=== PATIENT | male | born 1945 | race Caucasian/White ===

== ENCOUNTER 2017-03-31 16:48 | Emergency (ER) | payer MEDICARE, BC ==
[2017-03-31] MEDS ORDERED: Sodium Chloride 0.9% 10 ML Syringe FLUSH PRN (19:47)
--- NOTE | 2017-03-31 19:49 | EDM.PDOC ---
ED HPI GENERAL MEDICAL PROBLEM - General Chief Complaint: Gastrointestinal Problem Stated Complaint: ILLNESS POISONING Time Seen by Provider: 03/31/17 19:40 Source of Information: Reports: Patient History Limitations: Reports: No Limitations - History of Present Illness INITIAL COMMENTS - FREE TEXT/NARRATIVE: Rafa presents today with complaints of abdominal pain for 48 hours. He reports he developed generalized abdominal pain, nausea and vomiting after eating a blueberry cake two days ago. Severity: Moderate Improves with: Reports: None Worsens with: Reports: Movement Associated Symptoms: Reports: Loss of Appetite, Nausea/Vomiting. Denies: Fever/ Chills, Headaches, Rash, Weakness Treatments MEAL MILLER: Reports: Other (see below) (none) Right Upper Abdomen Pain Score (Numeric/FACES): 8 - Related Data Allergies Allergy/AdvReac Type Severity Reaction Status Date / Time levofloxacin [From Levaquin] Allergy Cannot Verified 03/31/17 19:32 Remember metronidazole Allergy Cannot Verified 03/31/17 19:32 Remember Home Meds: Home Meds Donepezil HCl [Donepezil HCl] 10 mg PO BEDTIME 03/31/17 [History] Finasteride [Finasteride] 5 mg PO DAILY 03/31/17 [History] Memantine HCl [Memantine HCl] 10 mg PO BID 03/31/17 [History] Simvastatin [Simvastatin] 40 mg PO BEDTIME 03/31/17 [History] Venlafaxine HCl [Venlafaxine ER] 300 mg PO DAILY 03/31/17 [History] Vitamin E 2 cap PO DAILY 03/31/17 [History] buPROPion HCl [Wellbutrin Xl] 300 mg PO DAILY 03/31/17 [History] Social & Family History - Tobacco Use Smoking Status *Q: Never Smoker - Recreational Drug Use Recreational Drug Use: No ED ROS GENERAL - Review of Systems Review Of Systems: See Below Constitutional: Reports: Decreased Appetite. Denies: Fever, Chills, Malaise, Weakness HEENT: Reports: No Symptoms Respiratory: Reports: No Symptoms Cardiovascular: Reports: No Symptoms Endocrine: Reports: No Symptoms GI/Abdominal: Reports: Abdominal Pain, Decreased Appetite, Nausea, Vomiting. Denies: Black Stool, Bloody Stool, Constipation, Diarrhea, Difficulty Swallowing , Flatus, Hematemesis, Stool Incontinence : Reports: No Symptoms Musculoskeletal: Reports: No Symptoms Skin: Reports: No Symptoms Neurological: Reports: No Symptoms Psychiatric: Reports: No Symptoms Hematologic/Lymphatic: Reports: No Symptoms Immunologic: Reports: No Symptoms ED EXAM, GI/ABD - Physical Exam Exam: See Below Text/Narrative:: Rafa is a alert to self, situation 71 year old male presenting to the ER with complaints of abdominal pain for 48 hours. He denies having a bowel movement in the past 48 hours. Exam Limited By: No Limitations General Appearance: Alert, Mild Distress Eyes: Bilateral: EOMI Ears: Normal External Exam, Normal Canal, Hearing Grossly Normal, Normal TMs Nose: Normal Inspection, Normal Mucosa Throat/Mouth: Normal Inspection, Normal Lips, Normal Oropharynx, Normal Voice, No Airway Compromise Head: Atraumatic, Normocephalic Neck: Normal Inspection, Supple, Non-Tender, Full Range of Motion. No: Lymphadenopathy (R), Lymphadenopathy (L) Respiratory/Chest: No Respiratory Distress, Lungs Clear, Normal Breath Sounds, No Accessory Muscle Use, Chest Non-Tender Cardiovascular: Normal Peripheral Pulses, Regular Rate, Rhythm, No Edema, No Gallop, No Murmur, No Rub GI/Abdominal Exam: Soft, No Distention, No Mass, Rebound, Tender, Other ( Decreased bowel sounds, tenderness to RUQ) Back Exam: Normal Inspection, Full Range of Motion. No: CVA Tenderness (R), CVA Tenderness (L) Extremities: Normal Inspection, Normal Range of Motion, Non-Tender, No Pedal Edema, Normal Capillary Refill Neurological: Alert, Oriented, CN II-XII Intact, Normal Cognition, Normal Gait, No Motor/Sensory Deficits Psychiatric: Normal Affect, Normal Mood, Other (He does suffer from mild dementia. ) Skin Exam: Warm, Dry, Intact, Normal Color, No Rash Lymphatic: No Adenopathy Course - Vital Signs Last Recorded V/S: Last Vital Signs Temp 35.9 C 03/31/17 19:27 Pulse 66 03/31/17 22:48 Resp 16 03/31/17 22:48 BP 137/76 03/31/17 22:48 Pulse Ox 95 03/31/17 22:48 - Orders/Labs/Meds Orders: Active Orders 24 hr Category Date Time Status Abdomen Pelvis w Cont [CT] Stat Exams 03/31/17 22:30 Taken Gallbladder [Abdomen Ltd] [US] Stat Exams 03/31/17 21:05 Taken Saline Lock Insert [OM.PC] Routine Oth 03/31/17 19:47 Ordered Labs: Laboratory Tests 03/31/17 03/31/17 03/31/17 Range/Units 19:47 19:47 20:15 WBC 9.1 (4.5-11.0) K/uL RBC 5.18 (4.30-5.90) M/uL Hgb 15.2 H (12.0-15.0) g/dL Hct 45.2 (40.0-54.0) % MCV 87 (80-98) fL MCH 29 (27-31) pg MCHC 34 (32-36) % Plt Count 188 (150-400) K/uL Neut % (Auto) 71 H (36-66) % Lymph % (Auto) 16 L (24-44) % [place] % (Auto) 12 H (2-6) % Eos % (Auto) 1 L (2-4) % Baso % (Auto) 0 (0-1) % Sodium 139 L (140-148) mmol/L Potassium 4.1 (3.6-5.2) mmol/L Chloride 103 (100-108) mmol/L Carbon Dioxide 29 (21-32) mmol/L Anion Gap 11.1 (5.0-14.0) mmol/L BUN 18 (7-18) mg/dL Creatinine 1.0 (0.8-1.3) mg/dL Est Cr Clr Drug Dosing 68.94 mL/min Estimated GFR (MDRD) > 60 (>60) Glucose 116 H (74-106) mg/dL Calcium 9.0 (8.5-10.1) mg/dL Total Bilirubin 0.6 (0.2-1.0) mg/dL AST 35 (15-37) U/L ALT 136 H (12-78) U/L Alkaline Phosphatase 119 H (46-116) U/L Total Protein 6.8 (6.4-8.2) g/dL Albumin 3.9 (3.4-5.0) g/dL Globulin 2.9 (2.3-3.5) g/dL Albumin/Globulin Ratio 1.3 (1.2-2.2) Amylase 133 H (25-115) U/L Lipase 125 (73-393) U/L Urine Color Yellow Urine Appearance Clear Urine pH 6.0 (4.5-8.0) Ur Specific [place] 1.025 (1.008-1.030) Urine Protein Negative (NEGATIVE) mg/dL Urine Glucose (UA) Normal (NEGATIVE) mg/dL Urine Ketones Negative (NEGATIVE) mg/dL Urine Occult Blood Negative (NEGATIVE) Urine Nitrite Negative (NEGAITVE) Urine Bilirubin Negative (NEGATIVE) Urine Urobilinogen Normal (NORMAL) mg/dL Ur Leukocyte Esterase Negative (NEGATIVE) Urine RBC Not seen (0-5) Urine WBC Not seen (0-5) Ur Epithelial Cells Rare Amorphous Sediment Not seen Urine Bacteria Not seen Urine Mucus Moderate Urine Other Meds: Medications Discontinued Medications Generic Name Dose Route Start Last Admin Trade Name Freq PRN Reason Stop Dose Admin Lactated Ringer's 1,000 mls @ 500 mls/hr 03/31/17 20:00 03/31/17 22:07 Ringers, Lactated IV 500 mls/hr ASDIRECTED KATARZYNA Administration Sodium Chloride 78 mls @ 3.5 mls/sec 03/31/17 23:00 03/31/17 23:10 Normal Saline IV 3.5 mls/sec ASDIRECTED KATARZYNA Administration Iopamidol 123 ml 03/31/17 22:56 03/31/17 23:10 Isovue-300 (61%) IV 04/01/17 22:57 123 ml . DIRECTED PRN Administration RADIOLOGY EXAM Sodium Chloride 10 ml 03/31/17 19:47 03/31/17 20:09 Saline Flush FLUSH 10 ml ASDIRECTED PRN Administration Keep Vein Open - Radiology Interpretation CT Results Date: 04/01/17 (Abdominal CT with contrast: No acute abnormality of the abdomen and pelvis. Age indeterminate compression deformity of the L1 vertebral body. ) - Re-Assessments/Exams Free Text/Narrative Re-Assessment/Exam: 03/31/17 22:00 US report reviewed with patient, thickening of gallbladder wall. We will complete CT scan with contrast. Patient in agreement with plan. 04/01/17 00:31 CT scan negative for acute findings. He will be discharged to home and will follow up with his primary provider. 04/01/17 02:15 Departure - Departure Time of Disposition: 00:31 Disposition: Home, Self-Care 01 Condition: Fair Clinical Impression: Abdominal pain, Cholelithiases - Discharge Information Instructions: Cholelithiasis, Abdominal Pain, Adult, [id number] Referrals: Matthew Deal MD [Primary Care Provider] - Forms: ED Department Discharge Additional Instructions: You were treated in the emergency room today for abdominal pain and cholelithiasis (gall bladder disease). Follow up with your primary care provider in 7 to 14 days for a recheck and any further need of additional testing. Return to the emergency room for worsening, issues or concerns. You may take acetaminophen for pain as needed. Try to reduce your intake of fried/fatty foods. Keep yourself hydrated by drinking plenty of water. - My Orders Last 24 Hours: My Active Orders 03/31/17 19:47 Saline Lock Insert [OM.PC] Routine 03/31/17 21:05 Gallbladder [Abdomen Ltd] [US] Stat 03/31/17 22:30 Abdomen Pelvis w Cont [CT] Stat - Assessment/Plan Last 24 Hours: My Active Orders 03/31/17 19:47 Saline Lock Insert [OM.PC] Routine 03/31/17 21:05 Gallbladder [Abdomen Ltd] [US] Stat 03/31/17 22:30 Abdomen Pelvis w Cont [CT] Stat Assessment:: Cholilithiasis Abdominal pain Plan: Patient was treated in the emergency room today for abdominal pain and cholelithiasis (gall bladder disease). Follow up with his primary care provider in 7 to 14 days for a recheck and any further need of additional testing. Return to the emergency room for worsening, issues or concerns. He may take acetaminophen for pain as needed. Try to reduce your intake of fried/fatty foods. Keep himself hydrated by drinking plenty of water.
[2017-03-31] MEDS: Lactated Ringers 1,000 ML IV SCH ×2 (20:04→22:07)
[2017-03-31] MEDS ORDERED: Iopamidol 612 MG/ML 150 ML Bottle IV PRN (22:56)
== END 2017-04-01 00:47 | disposition home or self-care (01) ==
LOC: JP.ED 16:48
DX: K80.20 Calculus of gallbladder without cholecystitis without obstruction (principal); Z79.899 Other long term (current) drug therapy; Z88.1 Allergy status to other antibiotic agents; Z88.8 Allergy status to other drugs, medicaments and biological substances
CPT/HCPCS: 36415; 74177; 76705; 80053; 81001; 82150; 83690; 85025; 96360; 96361; 99283; 99284; J7030; J7050; J7120